=== PATIENT | male | born 1955 | race Two or more races ===

== ENCOUNTER 2017-07-19 02:10 | Emergency (ER) | payer SELFPAY ==
[~2017-07-19] VITALS: Ht 175.3 cm; Wt 72.6 kg
[2017-07-19 02:15] VITALS: BP 106/62
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
[2017-07-19 04:20] VITALS: BP 102/61
[2017-07-19 06:20] VITALS: BP 110/63
--- NOTE | 2017-07-19 08:59 | Diagnostic Imaging Report ---
Indication: Trauma. Technique: Continuous helical CT scanning of the head was performed utilizing automated exposure control without intravenous contrast material. Axial and coronal reconstructions were obtained. Comparison: None CT dose: Total DLP 1499.24 mGycm; CTDI vol 70.38 mGy Findings: There is no acute intracranial hemorrhage, mass effect or cortical edema. The size and configuration of the ventricular system is within normal limits. The posterior fossa and fourth ventricle are unremarkable. Sellar and suprasellar regions are grossly unremarkable. There is diffuse increased density of all visualized vessels without focal asymmetrically dense vessel. Visualized mastoid air cells and paranasal sinuses are unremarkable. No focal lesions of the bony calvarium or soft tissues of the scalp are seen. Impression: No evidence of acute intracranial hemorrhage, mass effect or cortical edema. MRI may be obtained for more sensitive evaluation as clinically indicated. No skull fracture. Diffuse increased density of the vessels without focally dense vessel. These findings can be seen with dehydration. Correlate clinically. This corresponds with the statrad preliminary report. The CT scanner at [facility] is accredited by the [employer] and the scans are performed using protocols designed to limit radiation exposure to as low as reasonably achievable to attain images of sufficient resolution adequate for diagnostic evaluation.
[2017-07-19 13:15] VITALS: BP 110/63
== END 2017-07-19 13:15 | disposition home or self-care (01) ==
LOC: EDBD 03:39 → EMR 03:39
DX: F10.129 Alcohol abuse with intoxication, unspecified (principal); S00.81XA Abrasion of other part of head, initial encounter; Y04.0XXA Assault by unarmed brawl or fight, initial encounter; Y92.511 Restaurant or cafe as the place of occurrence of the external cause
CPT/HCPCS: 36415; 70450; 99284; G0480; 80329